=== PATIENT | male | born 1935 | race Caucasian/White ===

== ENCOUNTER 2016-11-07 19:21 | Inpatient (IN) ==
[2016-11-07] MEDS ORDERED: SODIUM CHLORIDE 1,000 ML IV STA ×3 (19:24→21:15)
[2016-11-07] MEDS ORDERED: ZOFRAN 4 MG/2 ML IVP STA (19:24)
[2016-11-07] MEDS ORDERED: MORPHINE 2 MG/ML SYRINGE IVP STA (19:25)
[2016-11-07 19:40] LABS: BASOPHILS # (AUTO) 0.1 K/uL (0-0.2); BASOPHILS % (AUTO) 0.3 % (0.0-3.0); EOSINOPHILS # (AUTO) 0.8 K/ul (0.0-0.7); EOSINOPHILS % (AUTO) 5.4 % (0.0-7.0); HEMATOCRIT 43.3 % (42.0-52.0); HEMOGLOBIN 14.8 g/dl (14.0-18.0); IMMATURE GRANULOCYTE % (AUTO) 0.5 % (0.0-5.0); LYMPHOCYTES # (AUTO) 1.3 K/uL (0.60-3.4); LYMPHOCYTES % (AUTO) 8.3 (10.0-50.0); MEAN CORPUSCULAR HGB CONC 34.2 (31.8-35.4); MEAN CORPUSCULAR VOLUME 84.9 fl (80.0-94.0); MONOCYTES # (AUTO) 1.1 K/uL (0.4-2.0); MONOCYTES % (AUTO) 7.2 (0-10); NEUTROPHILS % (AUTO) 78.3; PLATELET COUNT 259 10^3/uL (140-440); WHITE BLOOD COUNT 15.32 K/ul (4.2-10.2)
[2016-11-07 20:01] LABS: ANION GAP 19.3; BILIRUBIN,TOTAL 0.38 mg/dL (0.00-1.20); BUN/CREATININE RATIO 14.28; CALCIUM 9.9 mg/dL (8.2-10.2); CREATININE 1.4 mg/dL (0.60-1.10); POTASSIUM 4.3 mmol/L (3.5-5.1)
[2016-11-07 20:06] LABS: TROPONIN I 0.032 ng/ml (0.0000-0.4000)
[2016-11-07 20:16] LABS: ERYTHROCYTE SEDIMENTATION RATE 35 mm/hr (0-15); ESR INTERNAL QC INTERNAL QC VALID
[2016-11-07 20:22] LABS: FLU INTERNAL QC INTERNAL QC VALID; RAPID FLU A NEGATIVE (NEGATIVE); RAPID FLU B NEGATIVE (NEGATIVE)
--- NOTE | 2016-11-07 20:59 | CT ---
Exam: CT of the abdomen and pelvis without contrast History: Vomiting and diarrhea Technique: [address] of the abdomen pelvis without intravascular contrast FINDINGS: Reticular coarsening in the lung bases right greater than left. No infiltrative opacitie s. No abnormality of the liver, pancreas, spleen or adrenal glands. Prior cholecystectomy. Athero sclerotic calcification of the aorta without aneurysm. Inferior vena cava filter in place. The radha endix is normal. Fluid filled, nondilated small bowel and colonic loops. No inflammation of the me sentery or retroperitoneum. Peritoneal lipomatosis is present. Generous prostate gland. Normal urinary bladder. Pelvic bowel loops appear normal with luminal flu id. No acute findings of the skeleton. Minor stranding of the subcutaneous fat noted symmetrically right and left of the umbilicus. Impression: 1. No inflammatory process, bowel or urinary obstruction is seen. 2. Nonspecific fluid filled small bowel and colonic loops with nonobstructive pattern. Correlate f or diarrhea. 3. Inferior vena cava filter in place 4. Subcutaneous fat stranding of the abdominal wall anteriorly and symmetrically right and left of the umbilicus. Correlate with clinical inspection.
--- NOTE | 2016-11-07 22:43 | ED.PDOC ---
General ED Provider: Dr. SANTHOSH LOPEZ-ER Chief Complaint: Nausea/Vomiting Stated Complaint: hes had vomiting and diarrhea Time Seen by Physician: 19:55 Mode of Arrival: Wheelchair Information Source: Patient, Family Exam Limitations: No limitations Primary Care Provider: SANTHOSH LOPEZ Nursing and Triage Documentation Reviewed and Agree: Yes GI Complaint Exam - Vomiting/Diarrhea Complaint/Exam Onset/Duration: 24hrs Symptoms Are: Still present Episodes of Vomiting over last 24 Hours: 5 Episodes of Diarrhea Over Last 24 Hours: 9 Initial Severity: Mild Current Severity: None Character of Vomiting: Reports: Non-bilious Character of Diarrhea: Reports: Watery Aggravating: Reports: None Alleviating: Reports: None Associated Signs and Symptoms: Reports: Abdominal pain, Cramping Related History: Reports: Recent antibiotics Non-GI Risk Factors: Reports: None Abdominal Findings: Present: None Kussmaul Respirations Present: No Differential Diagnoses: Dehydration, Viral Gastroenteritis, Bacterial Gastroenteritis, UTI Review of Systems - Review Of Systems Constitutional: Reports: Chills, Fever, Weakness Eyes: Reports: No symptoms Ears, Nose, Mouth, Throat: Reports: No symptoms Respiratory: Reports: No symptoms Cardiac: Reports: No symptoms GI: Reports: Abdominal pain, Diarrhea, Nausea, Poor appetite, Vomiting : Reports: No symptoms Musculoskeletal: Reports: No symptoms Skin: Reports: No symptoms Neurological: Reports: No symptoms Endocrine: Reports: No symptoms Hematologic/Lymphatic: Reports: No symptoms All Other Systems: Reviewed and Negative Past Medical History - Past Medical History Endocrine: Reports: Unknown Cardiovascular: Reports: Unknown Respiratory: Reports: Unknown Hematological: Reports: Unknown Gastrointestinal: Reports: Unknown Genitourinary: Reports: Unknown Neuro/Psych: Reports: Unknown Musculoskeletal: Reports: Unknown Cancer: Reports: Unknown - Surgical History General Surgical History: Reports: Unknown - Family History Family History: Reports: Unknown - Social History Smoking Status: Former smoker Hx Substance Use: No Alcohol Screening: None Lives: With family - Immunizations Tetanus Shot up to Date: Yes Physical Exam - Physical Exam Appearance: Ill-appearing Ill-appearing: Moderate Pain Distress: Mild Eyes: GERMAN, EOMI, Conjunctiva clear ENT: Ears normal, Nose normal, Oropharynx normal Neck: Supple Respiratory: Airway patent, Breath sounds clear, Breath sounds equal, Respirations nonlabored Cardiovascular: RRR, Pulses normal, No rub, No murmur GI/: Soft, Nontender, No masses, Bowel sounds normal, No Organomegaly Musculoskeletal: Normal strength, ROM intact, No edema, No calf tenderness Skin: Warm, Dry, Normal color Neurological: Sensation intact, Motor intact, Reflexes intact, Cranial nerves intact, Alert, Oriented Psychiatric: Affect appropriate, Mood appropriate Interpretation - Radiology Interpretation Radiology Interpretation By: Radiologist Radiology Results: Negative Exam Interpreted: CT Scan - EKG Interpretation Time of EKG #1: 22:44 Rate: Tachy Rhythm: Sinus Ectopy: None Bazine: NL ST Segment: Normal Interpretation: sinus tachy Re-Evaluation - Re-Evaluation Time of Re-Evaluation: 22:44 Status: Improved Vital Signs Stable: Yes Pain Level: 0 Appearance: NAD Lungs: Clear Skin: Warm and Dry Neuro: Alert and Oriented X3 CV: RRR Critical Care Note - Critical Care Note Total Time (mins): 0 Course - Course Hematology/Chemistry: 11/07/16 19:34 11/07/16 19:35 Orders, Labs, Meds: Lab Review 11/07/16 11/07/16 11/07/16 19:34 19:35 19:55 WBC 15.32 H RBC 5.10 Hgb 14.8 Hct 43.3 MCV 84.9 MCH 29.0 MCHC 34.2 RDW Coeff of Shahnaz 14.1 Plt Count 259 Immature Gran % (Auto) 0.5 Neut % (Auto) 78.3 Lymph % (Auto) 8.3 L [place] % (Auto) 7.2 Eos % (Auto) 5.4 Baso % (Auto) 0.3 Immature Gran # (Auto) 0.1 Neut # 12.0 H Lymph # 1.3 [place] # 1.1 Eos # 0.8 H Baso # 0.1 ESR 35 H Sodium 136 Potassium 4.3 Chloride 103 Carbon Dioxide 18 L Anion Gap 19.3 BUN 20 H Creatinine 1.40 H Estimated GFR (MDRD) 49.00 BUN/Creatinine Ratio 14.28 Glucose 222 H Calcium 9.9 Total Bilirubin 0.38 AST 22 ALT 25 Alkaline Phosphatase 60 Total Creatine Kinase 104 Troponin I 0.0320 Total Protein 8.0 Albumin 4.0 Globulin 4.0 Albumin/Globulin Ratio 1.00 Amylase 43 Lipase 23 Influenza A (Rapid) Negative Influenza B (Rapid) Negative Orders Category Date Time Status EKG-(ED ONLY) Stat CARDIO 11/07/16 19:23 Completed C-DIFF MONITORING (NURSING) BID CARE 11/07/16 19:57 Active IV [ED IV/MEDIPORT/POWERPORT] .ONCE EMERGENCY 11/07/16 19:23 Active AMYLASE Stat LAB 11/07/16 19:35 Completed CBC W/ AUTO DIFF Stat LAB 11/07/16 19:34 Completed COMPREHENSIVE METABOLIC PANEL Stat LAB 11/07/16 19:35 Completed CREATINE KINASE Stat LAB 11/07/16 19:34 Completed ESR Stat LAB 11/07/16 19:34 Completed LIPASE Stat LAB 11/07/16 19:35 Completed MOLECULAR GROUP A STREP Stat LAB 11/07/16 19:57 Results RAPID FLU A/B Stat LAB 11/07/16 19:55 Completed STOOL CULTURE Stat LAB 11/07/16 21:00 Results STREP SCREEN Stat LAB 11/07/16 19:57 Results TROPONIN I Stat LAB 11/07/16 19:34 Completed URINALYSIS C & S IF INDICATED Stat LAB 11/07/16 19:58 Ordered cdiff [C. DIFFICILE] Routine LAB 11/07/16 21:00 Received 0.9 % Sodium Chloride [Saline Flush] MEDS 11/07/16 19:23 Ordered 1 syr IVF PRN PRN Levofloxacin/D5w [Levaquin] 250 mg MEDS 11/07/16 22:48 Active Premix 50 ml D5w 1 bag IV ONCE Morphine Sulfate [Morphine 2 mg/ml Syringe] MEDS 11/07/16 19:25 Discontinued 2 mg IVP ONCE STA Ondansetron HCl/Pf [Zofran 4 mg/2 ml] MEDS 11/07/16 19:24 Discontinued 8 mg IVP ONCE STA Sodium Chloride 0.9% [Sodium Chloride] 1,000 ml MEDS 11/07/16 21:15 Active IV 150 mls/hr Sodium Chloride 0.9% [Sodium Chloride] 1,000 ml MEDS 11/07/16 19:24 Discontinued IV BOLUS Sodium Chloride 0.9% [Sodium Chloride] 1,000 ml MEDS 11/07/16 19:[address] ABDOMEN/PELVIS WO CONTRAST Stat RADS 11/07/16 19:25 Completed Medications Generic Name Dose Route Start Last Admin Trade Name Freq PRN Reason Stop Dose Admin Sodium Chloride 1,000 mls @ 150 mls/hr 11/07/16 21:15 11/07/16 22:14 Sodium Chloride IV 11/08/16 03:54 150 mls/hr .Q6H40M STA Administration Levofloxacin/Dextrose 250 mg/ 50 mls @ 75 mls/hr 11/07/16 22:48 Dextrose IV 11/07/16 23:27 ONCE STA Sodium Chloride 1 syr 11/07/16 19:23 11/07/16 20:08 Saline Flush IVF 1 syr PRN PRN Administration To flush IV Discontinued Medications Generic Name Dose Route Start Last Admin Trade Name Freq PRN Reason Stop Dose Admin Sodium Chloride 1,000 mls @ 1,000 mls/hr 11/07/16 19:24 11/07/16 21:05 Sodium Chloride IV 11/07/16 20:23 1,000 mls/hr BOLUS STA Administration Sodium Chloride 1,000 mls @ 1,000 mls/hr 11/07/16 19:24 11/07/16 20:04 Sodium Chloride IV 11/07/16 20:23 1,000 mls/hr BOLUS STA Administration Morphine Sulfate 2 mg 11/07/16 19:25 11/07/16 20:10 Morphine 2 Mg/Ml Syringe IVP 11/07/16 19:26 2 mg ONCE STA Administration Ondansetron HCl 8 mg 11/07/16 19:24 11/07/16 20:08 Zofran 4 Mg/2 Ml IVP 11/07/16 19:25 8 mg ONCE STA Administration Vital Signs: Temp Pulse Resp BP Pulse Ox 11/07/16 19:53 98.8 F 118 H 22 139/83 99 Departure - Departure Time of Disposition: 22:52 Disposition: ADMITTED INPATIENT Discharge Problem: Enteritis due to Campylobacter species Instructions: Infectious Colitis (ED) Condition: Good Pt referred to PMD for follow-up: Yes Allergies/Adverse Reactions: Allergies codeine Adverse Reaction (Verified 11/07/16 20:15) sulfamethoxazole [From Bactrim] Adverse Reaction (Verified 11/07/16 20:15) trimethoprim [From Bactrim] Adverse Reaction (Verified 11/07/16 20:15) Home Medications: Ambulatory Orders Allopurinol 300 mg PO DAILY 03/03/14 Amlodipine Besylate [Norvasc] 10 mg PO DAILY 03/03/14 Aspirin [Aspirin EC] 81 mg PO DAILY 03/03/14 Cholecalciferol (Vitamin D3) [D3-2000] 2,000 units PO DAILY 03/03/14 Hydrocodone/Acetaminophen [[place] 5-325 Tablet] 1 tab PO Q4H PRN 03/03/14 Ipratropium/Albuterol Sulfate [Combivent Respimat Inhal [place]] 3 mg IH DAILY PRN 03/03/14 Losartan Potassium 100 mg PO DAILY 03/03/14 Minocycline HCl 50 mg PO DAILY PRN 03/03/14 Montelukast Sodium [Singulair] 10 mg PO DAILY 03/03/14 [place]-3 Fatty Acids [Fish Oil] 1,400 mg PO DAILY 03/03/14 Propafenone HCl [Rythmol] 150 mg PO BID 03/03/14 Ubidecarenone [Co Q-10] 200 mg PO DAILY 03/03/14 Insulin Regular, Human [Novolin R] 5 unit IJ TIDWM 11/07/16 NPH, Human Insulin Isophane [Novolin N Insulin] 40 unit SUBCUT BID 11/07/16 Disposition Discussed With: Patient, Family
[2016-11-07] MEDS ORDERED: LEVAQUIN 250 MG in PREMIX 50 ML D5W 1 BAG IV STA (22:48)
[2016-11-07] MEDS ORDERED: LEVAQUIN 50 ML IV ONE (22:50)
[2016-11-07] MEDS ORDERED: NORCO 5-325 PO PRN (22:55)
[2016-11-07] MEDS ORDERED: COMBIVENT RESPIMAT INHAL SPRAY IH PRN (22:55)
[2016-11-07] MEDS ORDERED: ZOFRAN 4 MG/2 ML IVP PRN (23:36)
[2016-11-07] MEDS ORDERED: MORPHINE 2 MG/ML SYRINGE IVP PRN (23:36)
[2016-11-08 00:19] VITALS: BMI 33.5
[2016-11-08] MEDS ORDERED: FLAGYL 500 MG/100 ML 100 ML IV ONE ×2 (00:32→04:43)
[2016-11-08] MEDS: FLAGYL 500 MG/100 ML 500 MG in PREMIX 100 ML NS 1 BAG IV SCH ×4 (00:39→20:38)
[2016-11-08 01:19] LABS: BILIRUBIN,URINE Negative (NEGATIVE); KETONES,URINE Trace (NEGATIVE); LEUKOCYTE ESTERASE ,URINE Negative (NEGATIVE); NITRITE,URINE Negative (NEGATIVE); PH,URINE 5.5 (5-9); PROTEIN,URINE Negative (NEGATIVE); URINE, BLOOD Negative (NEGATIVE)
[2016-11-08 01:20] LABS: ADD URINE MICROSCOPIC NO
[2016-11-08 05:44] LABS: BASOPHILS % (AUTO) 0.4 % (0.0-3.0); EOSINOPHILS # (AUTO) 0.6 K/ul (0.0-0.7); EOSINOPHILS % (AUTO) 6.9 % (0.0-7.0); HEMATOCRIT 34.4 % (42.0-52.0); HEMOGLOBIN 11.4 g/dl (14.0-18.0); IMMATURE GRANULOCYTE % (AUTO) 0.4 % (0.0-5.0); LYMPHOCYTES # (AUTO) 2.3 K/uL (0.60-3.4); LYMPHOCYTES % (AUTO) 24.5 (10.0-50.0); MEAN CORPUSCULAR HEMOGLOBIN 28.7 pg (27.0-31.0); MEAN CORPUSCULAR HGB CONC 33.1 (31.8-35.4); MEAN CORPUSCULAR VOLUME 86.6 fl (80.0-94.0); MONOCYTES # (AUTO) 0.8 K/uL (0.4-2.0); MONOCYTES % (AUTO) 8.1 (0-10); NEUTROPHILS # (AUTO) 5.6 K/ul (2.0-6.9); NEUTROPHILS % (AUTO) 59.7; PLATELET COUNT 212 10^3/uL (140-440); RED BLOOD COUNT 3.97 10^6/ul (4.70-6.10); WHITE BLOOD COUNT 9.34 K/ul (4.2-10.2)
[2016-11-08] MEDS: SODIUM CHLORIDE 0.9%-KCL 20 MEQ 1,000 ML IV SCH ×3 (05:55→18:21)
[2016-11-08 05:59] LABS: ALBUMIN 3.1 g/dL (3.4-5.0); ALBUMIN/GLOBULIN RATIO 0.94; ANION GAP 12.9; BILIRUBIN,TOTAL 0.36 mg/dL (0.00-1.20); BUN/CREATININE RATIO 17.11; CALCIUM 8.1 mg/dL (8.2-10.2); CREATININE 1.11 mg/dL (0.60-1.10); POTASSIUM 3.9 mmol/L (3.5-5.1); TOTAL PROTEIN 6.4 g/dL (5.8-8.1)
[2016-11-08] MEDS: HUMULIN N SUBCUT SCH ×2 (08:56→20:39)
[2016-11-08] MEDS: HUMULIN R SUBCUT SCH ×3 (08:57→17:13)
[2016-11-08] MEDS: ZYLOPRIM PO SCH (08:57)
[2016-11-08] MEDS ORDERED: PROPAFENONE HCL 150 MG PO SCH ×21 (09:00)
[2016-11-08] MEDS ORDERED: NON-FORMULARY MEDICATION (Allopurinol [Allopurinol] 300 MG) PO SCH ×22 (09:00)
[2016-11-08] MEDS: PROPAFENONE HCL 150 MG PO SCH ×21 (20:38)
[2016-11-08] MEDS ORDERED: LEVAQUIN 500 MG in PREMIX 100 ML D5W 1 BAG IV SCH (21:00)
[2016-11-09] MEDS: SODIUM CHLORIDE 0.9%-KCL 20 MEQ 1,000 ML IV SCH (01:05)
[2016-11-09] MEDS: FLAGYL 500 MG/100 ML 500 MG in PREMIX 100 ML NS 1 BAG IV SCH (05:37)
[2016-11-09 05:47] VITALS: BP 118/71; TEMP 97.3
[2016-11-09 06:10] LABS: BASOPHILS % (AUTO) 0.4 % (0.0-3.0); EOSINOPHILS % (AUTO) 13.5 % (0.0-7.0); HEMOGLOBIN 11.8 g/dl (14.0-18.0); IMMATURE GRANULOCYTE % (AUTO) 0.4 % (0.0-5.0); LYMPHOCYTES # (AUTO) 1.8 K/uL (0.60-3.4); LYMPHOCYTES % (AUTO) 24.6 (10.0-50.0); MEAN CORPUSCULAR HEMOGLOBIN 29.1 pg (27.0-31.0); MEAN CORPUSCULAR HGB CONC 33.7 (31.8-35.4); MEAN CORPUSCULAR VOLUME 86.4 fl (80.0-94.0); MONOCYTES # (AUTO) 0.5 K/uL (0.4-2.0); MONOCYTES % (AUTO) 6.8 (0-10); NEUTROPHILS # (AUTO) 3.9 K/ul (2.0-6.9); NEUTROPHILS % (AUTO) 54.3; PLATELET COUNT 232 10^3/uL (140-440); RED BLOOD COUNT 4.05 10^6/ul (4.70-6.10); WHITE BLOOD COUNT 7.16 K/ul (4.2-10.2)
[2016-11-09] MEDS ORDERED: LEVAQUIN PO SCH (06:30)
[2016-11-09 06:40] LABS: ANION GAP 10.1; BILIRUBIN,TOTAL 0.34 mg/dL (0.00-1.20); BUN/CREATININE RATIO 12.5; CALCIUM 8.7 mg/dL (8.2-10.2); CREATININE 0.96 mg/dL (0.60-1.10); POTASSIUM 4.1 mmol/L (3.5-5.1)
[2016-11-09 06:41] LABS: ALBUMIN 3.3 g/dL (3.4-5.0); TOTAL PROTEIN 6.6 g/dL (5.8-8.1)
[2016-11-09] MEDS: HUMULIN R SUBCUT SCH (08:27)
[2016-11-09] MEDS: HUMULIN N SUBCUT SCH (08:28)
[2016-11-09] MEDS: ZYLOPRIM PO SCH (08:29)
[2016-11-09] MEDS: PROPAFENONE HCL 150 MG PO SCH ×21 (08:29)
--- NOTE | 2017-02-06 09:30 | DS ---
PRINCIPAL DIAGNOSIS: 1. INFECTIOUS COLITIS 2. HYPERTENSION 3. COPD 4. DIABETES MELLITUS, INSULIN TREATED DISCUSSION: This is a 81-year-old gentleman, who was admitted through the Emergency Department with diarrhea with occasional blood, nausea and vomiting. He appeared somewhat dehydrated in the Emergency Department and was admitted for further evaluation. CLINICAL COURSE: The patient was admitted. Subsequent stool cultures were noted to be positive for Campylobacter antigen. He did well with antibiotics. His diarrhea abated. His nausea and vomiting resolved. We advanced his diet. At time of discharge, he was feeling much better. At this point he was discharged with medications per reconciliation. We are going to follow him up closely in the office. [place]
== END 2016-11-09 09:52 | disposition home or self-care (01) | DRG 373 ==
LOC: ED 19:21 → MEDSURG B 23:06
PROVIDERS: ADMIT Family Medicine; ATTEND Family Medicine
DX: A04.5 Campylobacter enteritis (principal); I10 Essential (primary) hypertension; J44.9 Chronic obstructive pulmonary disease, unspecified; E11.9 Type 2 diabetes mellitus without complications; Z79.4 Long term (current) use of insulin; Z79.899 Other long term (current) drug therapy
CPT/HCPCS: 36415; 80053; 81001; 82150; 82550; 82962; 83690; 84484; 85025; 85651; 87015; 87045; 87493; 87651; 87804; 87880; 87899; 93005; 93010; 96361; 96365; 96375; 97802; 99284

== ENCOUNTER 2016-11-18 22:04 | Emergency (ER) ==
[2016-11-18] MEDS ORDERED: SODIUM CHLORIDE 1,000 ML IV STA ×3 (22:14→23:23)
[2016-11-18 22:18] VITALS: BP 135/80; TEMP 98.2; BMI 32.3
[2016-11-18 22:39] LABS: BASOPHILS # (AUTO) 0.1 K/uL (0-0.2); BASOPHILS % (AUTO) 0.3 % (0.0-3.0); EOSINOPHILS % (AUTO) 4.8 % (0.0-7.0); HEMATOCRIT 46.3 % (42.0-52.0); HEMOGLOBIN 15.8 g/dl (14.0-18.0); IMMATURE GRANULOCYTE % (AUTO) 0.4 % (0.0-5.0); LYMPHOCYTES # (AUTO) 2.6 K/uL (0.60-3.4); LYMPHOCYTES % (AUTO) 12.7 (10.0-50.0); MEAN CORPUSCULAR HEMOGLOBIN 29.1 pg (27.0-31.0); MEAN CORPUSCULAR HGB CONC 34.1 (31.8-35.4); MEAN CORPUSCULAR VOLUME 85.3 fl (80.0-94.0); MONOCYTES # (AUTO) 1.2 K/uL (0.4-2.0); MONOCYTES % (AUTO) 5.8 (0-10); NEUTROPHILS # (AUTO) 15.7 K/ul (2.0-6.9); PLATELET COUNT 302 10^3/uL (140-440); RED BLOOD COUNT 5.43 10^6/ul (4.70-6.10); WHITE BLOOD COUNT 20.57 K/ul (4.2-10.2)
[2016-11-18] MEDS ORDERED: LIDOCAINE 1 % AMP 5 ML (SUTURES) ONE (22:50)
[2016-11-18 22:55] LABS: FLU INTERNAL QC INTERNAL QC VALID; RAPID FLU A NEGATIVE (NEGATIVE); RAPID FLU B NEGATIVE (NEGATIVE)
[2016-11-18 23:00] LABS: ALBUMIN 4.3 g/dL (3.4-5.0); ALBUMIN/GLOBULIN RATIO 0.98; ANION GAP 20.1; BILIRUBIN,TOTAL 0.46 mg/dL (0.00-1.20); BUN/CREATININE RATIO 12.42; CALCIUM 10.3 mg/dL (8.2-10.2); CREATININE 1.61 mg/dL (0.60-1.10); POTASSIUM 4.1 mmol/L (3.5-5.1); TOTAL PROTEIN 8.7 g/dL (5.8-8.1)
[2016-11-18] MEDS ORDERED: DILAUDID 1 MG/ML SYRINGE IVP STA (23:05)
[2016-11-18] MEDS ORDERED: ZOFRAN 4 MG/2 ML IVP STA (23:05)
[2016-11-18] MEDS ORDERED: FLAGYL 500 MG/100 ML 500 MG in PREMIX 100 ML NS 1 BAG IV STA (23:11)
[2016-11-18] MEDS ORDERED: FLAGYL 500 MG/100 ML 100 ML IV ONE (23:26)
--- NOTE | 2016-11-19 00:03 | CT ---
Exam: CT of the abdomen and pelvis without contrast History: Vomiting and diarrhea Technique: [address] of the abdomen and pelvis without intravascular contrast FINDINGS: Fibrotic coarsening of the lung bases. No significant liver abnormality. The adrenals, pa ncreas and spleen are unremarkable. The stomach and hiatus are unremarkable.Prior cholecystectomy. K idneys and proximal collecting system are unremarkable. The appendix is normal. The cecum is mobile located just left of midline. Atherosclerotic calcification of the aorta without aneurysm. Inferi or vena cava filter in place. Pelvic genitourinary structures appear normal. Pelvic bowel loops are unremarkable. No inflammatory change in the pelvic fat. No acute abnormality of the abdominal or pelvic skeleton. Impression: 1. No inflammatory process, bowel or urinary obstruction is seen. No acute findings of the abdomen or pelvis. 2. Atherosclerotic calcification of the aorta 3. Inferior vena cava filter in place
--- NOTE | 2016-11-19 01:21 | ED.PDOC ---
General ED Provider: Dr. SANTHOSH LOPEZ-ER Chief Complaint: Nausea/Vomiting Stated Complaint: hes vomiting and diarrhea Time Seen by Physician: 22:10 Information Source: Patient, Family Exam Limitations: No limitations Primary Care Provider: SANTHOSH LOPEZ Nursing and Triage Documentation Reviewed and Agree: Yes GI Complaint Exam - Vomiting/Diarrhea Complaint/Exam Onset/Duration: several hours Symptoms Are: Still present Episodes of Vomiting over last 24 Hours: 3 Episodes of Diarrhea Over Last 24 Hours: 3 Initial Severity: Mild Current Severity: Moderate Character of Vomiting: Reports: Non-bilious Character of Diarrhea: Reports: Watery Aggravating: Reports: None Alleviating: Reports: None Associated Signs and Symptoms: Reports: Abdominal pain, Cramping Related History: Reports: Recent antibiotics Non-GI Risk Factors: Reports: None Surgical Obstruction Risk Factors: Reports: None Abdominal Findings: Present: None Kussmaul Respirations Present: No Differential Diagnoses: Dehydration, Viral Gastroenteritis, Bacterial Gastroenteritis Review of Systems - Review Of Systems Constitutional: Reports: No symptoms Eyes: Reports: No symptoms Ears, Nose, Mouth, Throat: Reports: No symptoms Respiratory: Reports: No symptoms Cardiac: Reports: No symptoms GI: Reports: Abdominal pain, Diarrhea, Nausea, Vomiting : Reports: No symptoms Musculoskeletal: Reports: No symptoms Skin: Reports: No symptoms Neurological: Reports: No symptoms Endocrine: Reports: No symptoms Hematologic/Lymphatic: Reports: No symptoms All Other Systems: Reviewed and Negative Past Medical History - Past Medical History Endocrine: Reports: Unknown Cardiovascular: Reports: Unknown Respiratory: Reports: Unknown Hematological: Reports: Unknown Gastrointestinal: Reports: Unknown Genitourinary: Reports: Unknown Neuro/Psych: Reports: Unknown Musculoskeletal: Reports: Unknown Cancer: Reports: Unknown - Surgical History General Surgical History: Reports: Unknown - Family History Family History: Reports: Unknown - Social History Smoking Status: Never smoker Hx Substance Use: No Alcohol Screening: None Lives: With family - Immunizations Tetanus Shot up to Date: Yes Physical Exam - Physical Exam Appearance: Well-appearing, No pain distress, Well-nourished Eyes: GERMAN, EOMI, Conjunctiva clear ENT: Ears normal, Nose normal, Oropharynx normal Neck: Supple Respiratory: Airway patent, Breath sounds clear, Breath sounds equal, Respirations nonlabored Cardiovascular: RRR, Pulses normal, No rub, No murmur GI/: Soft, Nontender, No masses, Bowel sounds normal, No Organomegaly Musculoskeletal: Normal strength, ROM intact, No edema, No calf tenderness Skin: Warm, Dry, Normal color Neurological: Sensation intact, Motor intact, Reflexes intact, Cranial nerves intact, Alert, Oriented Psychiatric: Affect appropriate, Mood appropriate Interpretation - Radiology Interpretation Radiology Interpretation By: Radiologist Radiology Results: Negative Exam Interpreted: CT Scan Re-Evaluation - Re-Evaluation Time of Re-Evaluation: 01:20 Status: Improved (no pain or nausea--eating ice chips) Vital Signs Stable: Yes Pain Level: 0 Lungs: Clear Skin: Warm and Dry Neuro: Alert and Oriented X3 CV: RRR Critical Care Note - Critical Care Note Total Time (mins): 0 Course - Course Hematology/Chemistry: 11/18/16 22:30 11/18/16 22:30 Orders, Labs, Meds: Lab Review 11/18/16 11/18/16 11/18/16 22:20 22:30 23:35 WBC 20.57 H RBC 5.43 Hgb 15.8 Hct 46.3 MCV 85.3 MCH 29.1 MCHC 34.1 RDW Coeff of Shahnaz 14.4 Plt Count 302 Immature Gran % (Auto) 0.4 Neut % (Auto) 76.0 Lymph % (Auto) 12.7 [place] % (Auto) 5.8 Eos % (Auto) 4.8 Baso % (Auto) 0.3 Immature Gran # (Auto) 0.1 Neut # 15.7 H Lymph # 2.6 [place] # 1.2 Eos # 1.0 H Baso # 0.1 Sodium 138 Potassium 4.1 Chloride 103 Carbon Dioxide 19 L Anion Gap 20.1 BUN 20 H Creatinine 1.61 H Estimated GFR (MDRD) 42.00 BUN/Creatinine Ratio 12.42 Glucose 221 H Lactic Acid 25.6 H Calcium 10.3 H Total Bilirubin 0.46 AST 21 ALT 22 Alkaline Phosphatase 55 L Total Protein 8.7 H Albumin 4.3 Globulin 4.4 Albumin/Globulin Ratio 0.98 Amylase 52 Lipase 23 Procalcitonin 0.05 Influenza A (Rapid) Negative Influenza B (Rapid) Negative Orders Category Date Time Status C-DIFF MONITORING (NURSING) BID CARE 11/18/16 22:15 Active IV [ED IV/MEDIPORT/POWERPORT] .ONCE EMERGENCY 11/18/16 22:14 Active AMYLASE Stat LAB 11/18/16 22:30 Completed BLOOD CULTURE Stat LAB 11/18/16 22:30 Received CBC W/ AUTO DIFF Stat LAB 11/18/16 22:30 Completed COMPREHENSIVE METABOLIC PANEL Stat LAB 11/18/16 22:30 Completed LACTIC ACID Stat LAB 11/18/16 23:35 Completed LIPASE Stat LAB 11/18/16 22:30 Completed MOLECULAR GROUP A STREP Stat LAB 11/18/16 20:20 Results PROCALCITONIN Stat LAB 11/18/16 22:30 Completed RAPID FLU A/B Stat LAB 11/18/16 22:20 Completed STOOL CULTURE Stat LAB 11/18/16 22:20 Results STREP SCREEN Stat LAB 11/18/16 20:20 Results c-diff [C. DIFFICILE] Routine LAB 11/18/16 22:20 Received 0.9 % Sodium Chloride [Saline Flush] MEDS 11/18/16 22:14 Ordered 1 syr IVF PRN PRN Hydromorphone HCl [Dilaudid 1 mg/ml Syringe] MEDS 11/18/16 23:05 Discontinued 1 mg IVP ONCE STA Lidocaine HCl/Pf [Lidocaine 1 % Amp 5 ml (Sutures)] MEDS 11/18/16 22:50 Discontinued 5 ml .ROUTE .STK-MED ONE Metronidazole/Sodium Chloride [Flagyl 500 mg/100 ml] MEDS 11/18/16 23:26 Discontinued 100 ml IV .STK-MED Metronidazole/Sodium Chloride [Flagyl 500 mg/100 ml] MEDS 11/18/16 23:11 Discontinued 500 mg Premix 100 ml Ns 1 bag IV ONCE Ondansetron HCl/Pf [Zofran 4 mg/2 ml] MEDS 11/18/16 23:05 Discontinued 4 mg IVP ONCE STA Sodium Chloride 0.9% [Sodium Chloride] 1,000 ml MEDS 11/18/16 23:23 Active IV 100 mls/hr Sodium Chloride 0.9% [Sodium Chloride] 1,000 ml MEDS 11/18/16 22:14 Discontinued IV BOLUS Sodium Chloride 0.9% [Sodium Chloride] 1,000 ml MEDS 11/18/16 22:[address] ABDOMEN/PELVIS WO CONTRAST Stat RADS 11/18/16 22:14 Completed Medications Generic Name Dose Route Start Last Admin Trade Name Freq PRN Reason Stop Dose Admin Sodium Chloride 1,000 mls @ 100 mls/hr 11/18/16 23:23 Sodium Chloride IV 11/19/16 09:22 .Q10H STA Sodium Chloride 1 syr 11/18/16 22:14 11/18/16 23:08 Saline Flush IVF 1 syr PRN PRN Administration To flush IV Discontinued Medications Generic Name Dose Route Start Last Admin Trade Name Freq PRN Reason Stop Dose Admin Hydromorphone HCl 1 mg 11/18/16 23:05 11/18/16 23:14 Dilaudid 1 Mg/Ml Syringe IVP 11/18/16 23:06 1 mg ONCE STA Administration Sodium Chloride 1,000 mls @ 1,000 mls/hr 11/18/16 22:14 11/18/16 23:08 Sodium Chloride IV 11/18/16 23:13 1,000 mls/hr BOLUS STA Administration Sodium Chloride 1,000 mls @ 1,000 mls/hr 11/18/16 22:14 11/19/16 01:10 Sodium Chloride IV 11/18/16 23:13 1,000 mls/hr BOLUS STA Administration Metronidazole 500 mg/ Sodium 100 mls @ 100 mls/hr 11/18/16 23:11 11/18/16 23: 50 Chloride IV 11/19/16 00:10 100 mls/hr ONCE STA Administration Ondansetron HCl 4 mg 11/18/16 23:05 11/18/16 23:13 Zofran 4 Mg/2 Ml IVP 11/18/16 23:06 4 mg ONCE STA Administration Vital Signs: Temp Pulse Resp BP Pulse Ox 11/18/16 22:05 98.2 F 126 H 24 135/80 99 Departure - Departure Time of Disposition: 01:21 Disposition: TSF SHORT-TRM HOSP Discharge Problem: Enteritis due to Campylobacter species Instructions: Enteritis (ED) Condition: Good Pt referred to PMD for follow-up: Yes Allergies/Adverse Reactions: Allergies codeine Adverse Reaction (Verified 11/18/16 22:10) sulfamethoxazole [From Bactrim] Adverse Reaction (Verified 11/18/16 22:10) trimethoprim [From Bactrim] Adverse Reaction (Verified 11/18/16 22:10) Home Medications: Ambulatory Orders Allopurinol 300 mg PO DAILY 03/03/14 Amlodipine Besylate [Norvasc] 10 mg PO DAILY 03/03/14 Aspirin [Aspirin EC] 81 mg PO DAILY 03/03/14 Cholecalciferol (Vitamin D3) [D3-2000] 2,000 units PO DAILY 03/03/14 Hydrocodone/Acetaminophen [[place] 5-325 Tablet] 1 tab PO Q4H PRN 03/03/14 Ipratropium/Albuterol Sulfate [Combivent Respimat Inhal [place]] 3 puff IH DAILY PRN 03/03/14 Losartan Potassium 100 mg PO DAILY 03/03/14 Montelukast Sodium [Singulair] 10 mg PO DAILY 03/03/14 [place]-3 Fatty Acids [Fish Oil] 1,000 mg PO DAILY 03/03/14 Propafenone HCl [Rythmol] 150 mg PO BID 03/03/14 Ubidecarenone [Co Q-10] 200 mg PO DAILY 03/03/14 Insulin Regular, Human [Novolin R] 5 unit IJ TIDWM 11/07/16 NPH, Human Insulin Isophane [Novolin N Insulin] 40 unit SUBCUT BID 11/07/16 Transfer Form Completed: Yes Disposition Discussed With: Patient, Family
== END 2016-11-19 01:47 | disposition short-term general hospital (02) ==
LOC: ED 22:04
DX: A04.5 Campylobacter enteritis (principal); Z79.899 Other long term (current) drug therapy
CPT/HCPCS: 36415; 80053; 82150; 83605; 83690; 84145; 85025; 87015; 87040; 87045; 87493; 87651; 87804; 87880; 87899; 96361; 96365; 96375; 99285

== ENCOUNTER 2016-11-19 01:49 | Outpatient (CLI) ==
[2016-11-18 22:18] VITALS: BMI 32.3
== END 2016-11-19 01:50 ==
LOC: AMBL 01:49
PROVIDERS: ATTEND Family Medicine
DX: R11.2 Nausea with vomiting, unspecified (principal); R19.7 Diarrhea, unspecified

== ENCOUNTER 2017-04-24 16:02 | Emergency (ER) ==
[2017-04-24 16:08] VITALS: BP 109/70; TEMP 98.1; BMI 30.4
--- NOTE | 2017-04-24 16:59 | US ---
EXAM: Bilateral lower extremity venous Doppler HISTORY: Concern for DVT with lower extremity pain. COMPARISON: None TECHNIQUE: Sonographic and Doppler evaluation of the bilateral lower extremity vessels from the comm on femoral through the anterior tibial veins were obtained. Augmentation and compression techniques were also performed. FINDINGS: There is spontaneous Doppler flow seen in the bilateral lower extremity veins from the com mon femoral through the anterior tibial veins. There is normal compression and augmentation througho ut the lower extremity veins. Sonographic appearance of the soft tissues are unremarkable. IMPRESSION: No lower extremity thrombus
[2017-04-24 17:11] LABS: BASOPHILS # (AUTO) 0.1 K/uL (0-0.2); BASOPHILS % (AUTO) 0.6 % (0.0-3.0); EOSINOPHILS % (AUTO) 13.1 % (0.0-7.0); HEMOGLOBIN 12.9 g/dl (14.0-18.0); IMMATURE GRANULOCYTE % (AUTO) 0.4 % (0.0-5.0); LYMPHOCYTES # (AUTO) 1.8 K/uL (0.60-3.4); LYMPHOCYTES % (AUTO) 22.7 (10.0-50.0); MEAN CORPUSCULAR HGB CONC 34.9 (31.8-35.4); MONOCYTES # (AUTO) 0.6 K/uL (0.4-2.0); MONOCYTES % (AUTO) 7.2 (0-10); NEUTROPHILS # (AUTO) 4.4 K/ul (2.0-6.9); PLATELET COUNT 220 10^3/uL (140-440); WHITE BLOOD COUNT 7.79 K/ul (4.2-10.2)
--- NOTE | 2017-04-24 17:32 | CT ---
EXAM: CT of the lumbar spine without contrast. HISTORY: Pain. PROCEDURE: Contiguous axial CT images of the lumbar spine without contrast with coronal and sagittal reformats. FINDINGS: Comparison made with CT of 11/18/2016. There is 0.4 cm retrolisthesis of L2 on L3. There is a 0.3 cm anterolisthesis of L4 on L5. There is 0.5 cm retrolisthesis of L5 on S1. There is a stab le chronic anterior wedging deformity of the L1 vertebral body. There is severe disc space narrowing at multiple levels of the lumbar spine. There is vacuum disc phenomenon at multiple levels of the l umbar spine. There is a degenerative erosion in the inferior endplate of T12. There are posterior o steophytes at L1-L2, L2-L3, L3-L4 and L5, S1 resulting in multilevel neural foraminal narrowing. The re is severe multilevel facet arthropathy. There is spinal stenosis at L3-L4 and L4-L5 secondary to p osterior osteophytes, ligamentum flavum hypertrophy and facet arthropathy. Impression: Spinal stenosis at L3-L4 and L4-L5 as described. Multilevel anterolisthesis and retrolisthesis as described secondary to facet arthropathy. Multilevel degenerative changes as described. Multilevel neural foraminal narrowing as described. Stable chronic anterior wedging deformity of the L1 vertebral body.
--- NOTE | 2017-04-24 17:43 | ED.PDOC ---
General ED Provider: Dr. DANIELLA RABAGO Chief Complaint: Non-specific Complaint Stated Complaint: BILATERAL LEG NUMNESS Time Seen by Physician: 16:00 (HISTORY OF NEUROPATHY , SEEN WITH MARYCHUY ) Mode of Arrival: Walk-In Information Source: Patient Exam Limitations: No limitations Primary Care Provider: SANTHOSH LOPEZ Nursing and Triage Documentation Reviewed and Agree: Yes Musculoskeletal Complaint Exam - Lower Extremity Complaint/Exam Location of Pain: Reports: Right, Left, Leg (NUMBNESS ) Mechanism of Injury: Reports: No known trauma Onset/Duration: CHRONIC BUT INCREASED NUMBNESS NOTED Symptoms Are: Still present Onset of Pain: Reports: Days Initial Severity: Mild Current Severity: Mild Location: Reports: Discrete Character: Reports: Unable to describe (NUMBNESS) Alleviating: Reports: None Aggravating: Reports: None Able to Bear Weight: Yes Associated Signs and Symptoms: Reports: Numbness. Denies: Swelling, Redness, Bruising, Fever, Weakness, Tingling Related History: Reports: Similar episode DVT Risk Factors: Reports: Prior DVT Septic Arthritis Risk Factors: Reports: Extremes of age Related Surgical History: Reports: None NV Bundle Intact Distal to Injury: No Amanda's Sign Present: No Differential Diagnoses: DVT, Strain, Sprain Review of Systems - Review Of Systems Constitutional: Reports: No symptoms Eyes: Reports: No symptoms Ears, Nose, Mouth, Throat: Reports: No symptoms Respiratory: Reports: No symptoms Cardiac: Reports: No symptoms GI: Reports: No symptoms : Reports: No symptoms Musculoskeletal: Reports: Other (LEG PAIN) Skin: Reports: No symptoms Neurological: Reports: No symptoms Endocrine: Reports: No symptoms Hematologic/Lymphatic: Reports: No symptoms All Other Systems: Reviewed and Negative Past Medical History - Past Medical History Previously Healthy: Yes Endocrine: Reports: Unknown Cardiovascular: Reports: Unknown Respiratory: Reports: Unknown Hematological: Reports: Unknown Gastrointestinal: Reports: Unknown Genitourinary: Reports: Unknown Neuro/Psych: Reports: Unknown Musculoskeletal: Reports: Unknown Cancer: Reports: Unknown - Surgical History General Surgical History: Reports: Unknown - Family History Family History: Reports: Unknown - Social History Smoking Status: Never smoker Hx Substance Use: No Alcohol Screening: None Physical Exam - Physical Exam Appearance: Well-appearing, No pain distress, Well-nourished Eyes: GERMAN, EOMI, Conjunctiva clear ENT: Ears normal, Nose normal, Oropharynx normal Respiratory: Airway patent, Breath sounds clear, Breath sounds equal, Respirations nonlabored Cardiovascular: RRR, Pulses normal, No rub, No murmur GI/: Soft, Nontender, No masses, Bowel sounds normal, No Organomegaly Musculoskeletal: Normal strength, ROM intact, No edema, No calf tenderness Skin: Warm, Dry, Normal color Neurological: Sensation intact, Motor intact, Reflexes intact, Cranial nerves intact, Alert, Oriented Psychiatric: Affect appropriate, Mood appropriate Critical Care Note - Critical Care Note Total Time (mins): 0 Course - Course Hematology/Chemistry: 04/24/17 17:08 Orders, Labs, Meds: Lab Review 04/24/17 17:08 WBC 7.79 RBC 4.30 L Hgb 12.9 L Hct 37.0 L MCV 86.0 MCH 30.0 MCHC 34.9 RDW Coeff of Shahnaz 14.4 Plt Count 220 Immature Gran % (Auto) 0.4 Neut % (Auto) 56.0 Lymph % (Auto) 22.7 [place] % (Auto) 7.2 Eos % (Auto) 13.1 H Baso % (Auto) 0.6 Immature Gran # (Auto) 0.0 Neut # 4.4 Lymph # 1.8 [place] # 0.6 Eos # 1.0 H Baso # 0.1 Orders Category Date Time Status EKG-(ED ONLY) Stat CARDIO 04/24/17 16:30 Completed CBC W/ AUTO DIFF Stat LAB 04/24/17 17:08 Completed COMPREHENSIVE METABOLIC PANEL Stat LAB 04/24/17 17:08 Received CREATINE KINASE Stat LAB 04/24/17 17:08 Received TROPONIN I Stat LAB 04/24/17 17:[address] LUMBAR SPINE W/O CONTRAST Stat RADS 04/24/17 16:14 Completed U/S VENOUS SCAN ERIN LEGS Stat RADS 04/24/17 16:14 Completed Vital Signs: Temp Pulse Resp BP Pulse Ox 04/24/17 16:03 98.1 F 98 H 16 109/70 95 Departure - Departure Time of Disposition: 17:44 Disposition: HOME SELF-CARE Discharge Problem: Numbness in both legs, Neuropathy Instructions: Paresthesia (ED) Condition: Good Pt referred to PMD for follow-up: Yes Additional Instructions: Please call your Family Physician as soon as possible to schedule a follow-up appointment.THIS CONDITION CAN BE DUE TO ARTHRITIS OF YOUR BACK OR NEUROPATHY A NERVE CONDITION ASSOCIATED WITH DIABETES . Allergies/Adverse Reactions: Allergies ciprofloxacin [From Cipro] Adverse Reaction (Verified 04/24/17 16:08) codeine Adverse Reaction (Verified 04/24/17 16:08) sulfamethoxazole [From Bactrim] Adverse Reaction (Verified 04/24/17 16:08) trimethoprim [From Bactrim] Adverse Reaction (Verified 04/24/17 16:08) warfarin [From Coumadin] Adverse Reaction (Verified 04/24/17 16:08) Home Medications: Ambulatory Orders Allopurinol 300 mg PO DAILY 03/03/14 Amlodipine Besylate [Norvasc] 10 mg PO DAILY 03/03/14 Aspirin [Aspirin EC] 81 mg PO DAILY 03/03/14 Cholecalciferol (Vitamin D3) [D3-2000] 2,000 units PO DAILY 03/03/14 Ipratropium/Albuterol Sulfate [Combivent Respimat Inhal [place]] 3 puff IH DAILY PRN 03/03/14 Losartan Potassium 100 mg PO DAILY 03/03/14 Montelukast Sodium [Singulair] 10 mg PO DAILY 03/03/14 [place]-3 Fatty Acids [Fish Oil] 1,000 mg PO DAILY 03/03/14 Propafenone HCl [Rythmol] 150 mg PO BID 03/03/14 Ubidecarenone [Co Q-10] 200 mg PO DAILY 03/03/14 Insulin Regular, Human [Novolin R] 5 unit IJ TIDWM 11/07/16 NPH, Human Insulin Isophane [Novolin N Insulin] 40 unit SUBCUT BID 11/07/16 Albuterol Sulfate 0.083% Neb [Albuterol 0.083% Neb] 1 vial NEB RTQ8H 04/24/17 Fluticasone/Salmeterol [Advair 250-50 Diskus] 1 each IH DAILY 04/24/17
[2017-04-24 17:48] LABS: ALBUMIN 3.5 g/dL (3.4-5.0); ALBUMIN/GLOBULIN RATIO 0.9; ANION GAP 15.1; BILIRUBIN,TOTAL 0.26 mg/dL (0.00-1.20); BUN/CREATININE RATIO 18.18; CALCIUM 9.3 mg/dL (8.2-10.2); CREATININE 1.21 mg/dL (0.60-1.10); POTASSIUM 4.1 mmol/L (3.5-5.1); TOTAL PROTEIN 7.4 g/dL (5.8-8.1); TROPONIN I 0.02 ng/ml (0.0000-0.4000)
[2017-04-24 17:51] LABS: CREATINE KINASE MB 1.1 ng/ml (0.0-3.6)
== END 2017-04-24 18:11 | disposition home or self-care (01) ==
LOC: ED 16:02
DX: G57.93 Unspecified mononeuropathy of bilateral lower limbs (principal); M79.606 Pain in leg, unspecified; Z79.899 Other long term (current) drug therapy; Z86.718 Personal history of other venous thrombosis and embolism
CPT/HCPCS: 36415; 80053; 82550; 82553; 84484; 85025; 93005; 93010; 99283

== ENCOUNTER 2017-11-05 20:20 | Emergency (ER) | payer OTHER ==
[2017-11-05 20:25] VITALS: BP 135/70; TEMP 98.1; BMI 33.5
--- NOTE | 2017-11-05 20:59 | ED.PDOC ---
General ED Provider: Dr. CARL ANDERSON Chief Complaint: Non-specific Complaint Stated Complaint: Patient is an 82 year old male who has a history of COPD on home oxygen at night. Was seen today at the pulmonary clinic due to increased cough and was thought to have mild copd excacerbation needing doxycyclinc, oral steroids and was told to increase his Advir to twice a day. he used it this morning without any problems but immediatly after use tonight he started having a burning sensation on the chest. Upon arrival his pain had subsided. He then hand an other brief episode of the same when he walked to the bathroom. Time Seen by Physician: 20:30 Mode of Arrival: Ambulance Information Source: Patient, EMT Exam Limitations: No limitations Primary Care Provider: SANTHOSH LOPEZ Nursing and Triage Documentation Reviewed and Agree: Yes Reviewed sepsis parameters & appropriate labs ordered?: No System Inflammatory Response Syndrome: Pulse >90 BPM Sepsis Protocol: For patient's 13 years and over: Temp is 96.8 and below OR 101 and greater Pulse >90 BPM Resp >20/minute Acutely Altered Mental Status Are patient's symptoms suggestive of a new infection, such as: -Pneumonia -Skin, Soft Tissue -Endocarditis -UTI -Bone, Joint Infection -Implantable Device -Acute Abdominal Infection -Wound Infection -Meningitis -Blood Stream Catheter Infection -Unknown System Inflammatory Response Syndrome: Not Applicable Review of Systems - Review Of Systems Constitutional: Reports: No symptoms Eyes: Reports: No symptoms Ears, Nose, Mouth, Throat: Reports: No symptoms Respiratory: Reports: Cough, Short of air Cardiac: Reports: Chest pain GI: Reports: No symptoms : Reports: No symptoms Musculoskeletal: Reports: No symptoms Skin: Reports: No symptoms Neurological: Reports: No symptoms Endocrine: Reports: No symptoms Hematologic/Lymphatic: Reports: No symptoms All Other Systems: Reviewed and Negative Past Medical History - Past Medical History Previously Healthy: Yes Endocrine: Reports: DM 2 Cardiovascular: Reports: Hypertension, DVT Respiratory: Reports: COPD, Unknown Hematological: Reports: None Gastrointestinal: Reports: None Genitourinary: Reports: Kidney stones Neuro/Psych: Reports: None Musculoskeletal: Reports: Arthritis Cancer: Reports: Unknown - Surgical History General Surgical History: Reports: Other (brain surgery, Right) - Family History Family History: Reports: Unknown - Social History Smoking Status: Never smoker Hx Substance Use: No Alcohol Screening: None - Immunizations Tetanus Shot up to Date: Yes Physical Exam - Physical Exam Appearance: Well-appearing, No pain distress, Well-nourished Eyes: GERMAN, EOMI, Conjunctiva clear ENT: Ears normal, Nose normal, Oropharynx normal Neck: Supple Respiratory: Airway patent, Breath sounds clear, Breath sounds equal, Respirations nonlabored Cardiovascular: RRR, Pulses normal, No rub, No murmur GI/: Soft, Nontender, No masses, Bowel sounds normal, No Organomegaly Musculoskeletal: Normal strength, ROM intact, No edema, No calf tenderness Skin: Warm, Dry, Normal color Neurological: Sensation intact, Motor intact, Reflexes intact, Cranial nerves intact, Alert, Oriented Psychiatric: Anxious Interpretation - Radiology Interpretation Radiology Interpretation By: Radiologist Radiology Results: Negative Exam Interpreted: CXR - EKG Interpretation Time of EKG #1: 20:47 Rate: Normal Rhythm: Sinus Ectopy: None ST Segment: Other (non specific St Abnormalities) Critical Care Note - Critical Care Note Total Time (mins): 30 Course - Course Hematology/Chemistry: 11/05/17 20:49 11/05/17 20:49 Orders, Labs, Meds: Lab Review 11/05/17 11/05/17 20:49 20:49 WBC 7.11 RBC 4.11 L Hgb 12.4 L Hct 35.4 L MCV 86.1 MCH 30.2 MCHC 35.0 RDW Coeff of Shahnaz 13.5 Plt Count 221 Immature Gran % (Auto) 1.3 Neut % (Auto) 78.4 Lymph % (Auto) 14.1 [place] % (Auto) 5.2 Eos % (Auto) 0.7 Baso % (Auto) 0.3 Immature Gran # (Auto) 0.1 Neut # (Auto) 5.6 Lymph # (Auto) 1.0 [place] # (Auto) 0.4 Eos # (Auto) 0.1 Baso # (Auto) 0.0 Sodium 137 Potassium 4.2 Chloride 105 Carbon Dioxide 18 L Anion Gap 18.2 BUN 18 Creatinine 1.20 H Estimated GFR (MDRD) 58.00 BUN/Creatinine Ratio 15.00 Glucose 333 H Calcium 9.3 Total Bilirubin 0.3 AST 12 L ALT 16 Alkaline Phosphatase 55 L Total Creatine Kinase 167 CK-MB (CK-2) 2.5 CK-MB (CK-2) % 1.90505 Troponin I 0.0280 Total Protein 7.4 Albumin 3.5 Globulin 3.9 Albumin/Globulin Ratio 0.90 Orders Category Date Time Status EKG-(ED ONLY) Stat CARDIO 11/05/17 20:28 Completed CBC W/ AUTO DIFF Stat LAB 11/05/17 20:49 Completed COMPREHENSIVE METABOLIC PANEL Stat LAB 11/05/17 20:49 Completed CREATINE KINASE Stat LAB 11/05/17 20:49 Completed TROPONIN I Stat LAB 11/05/17 20:49 Completed CHEST, 1V AP ONLY Stat RADS 11/05/17 20:28 Taken Vital Signs: Temp Pulse Resp BP Pulse Ox 11/05/17 20:22 98.1 F 102 H 22 135/70 98 LINDY Risk Score Age >/= 65: Yes LINDY Total Score: 1 LINDY Risk Score: Risk Score Odds of by 30D 0 0.1 (0.1-0.2) 1 0.3 (0.2-0.3) 2 0.4 (0.3-0.5) 3 0.7 (0.6-0.9) 4 1.2 (1.0-1.5) 5 2.2 (1.9-2.6) 6 3.0 (2.5-3.6) 7 4.8 (3.8-6.1) Departure - Departure Time of Disposition: 23:38 Disposition: TSF SHORT-TRM HOSP Discharge Problem: Unstable angina Condition: Stable Pt referred to PMD for follow-up: Yes IPMP verified?: No Allergies/Adverse Reactions: Allergies ciprofloxacin [From Cipro] Adverse Reaction (Verified 04/24/17 16:08) codeine Adverse Reaction (Verified 04/24/17 16:08) sulfamethoxazole [From Bactrim] Adverse Reaction (Verified 04/24/17 16:08) trimethoprim [From Bactrim] Adverse Reaction (Verified 04/24/17 16:08) warfarin [From Coumadin] Adverse Reaction (Verified 04/24/17 16:08) Home Medications: Ambulatory Orders Allopurinol 300 mg PO DAILY 03/03/14 Amlodipine Besylate [Norvasc] 10 mg PO DAILY 03/03/14 Aspirin [Aspirin EC] 81 mg PO DAILY 03/03/14 Cholecalciferol (Vitamin D3) [D3-2000] 2,000 units PO DAILY 03/03/14 Ipratropium/Albuterol Sulfate [Combivent Respimat Inhal [place]] 3 puff IH DAILY PRN 03/03/14 Losartan Potassium 100 mg PO DAILY 03/03/14 Montelukast Sodium [Singulair] 10 mg PO DAILY 03/03/14 [place]-3 Fatty Acids [Fish Oil] 1,000 mg PO DAILY 03/03/14 Propafenone HCl [Rythmol] 150 mg PO BID 03/03/14 Ubidecarenone [Co Q-10] 200 mg PO DAILY 03/03/14 Albuterol Sulfate 0.083% Neb [Albuterol 0.083% Neb] 1 vial NEB RTQ8H 04/24/17 Fluticasone/Salmeterol [Advair 250-50 Diskus] 1 each IH DAILY 04/24/17 Doxycycline Hyclate 100 mg PO BID 11/05/17 Insulin Glargine,Hum.rec.anlog [Lantus] 40 unit SQ BEDTIME 11/05/17 Insulin Lispro [Humalog] 25 unit SQ DIRECTED 11/05/17 Prednisone 20 mg PO DIRECTED 11/05/17
--- NOTE | 2017-11-06 08:08 | DI ---
EXAM: Single frontal view of the chest HISTORY: Chest pain. COMPARISON: CT chest 03/03/2049 Chest x-ray 03/03/2014 FINDINGS: Cardiomediastinal silhouette is unremarkable. There is mild atherosclerotic disease of the aorta. There is no consolidation, nodule or mass. There is no pneumothorax or pleural effusion. O sseous structures demonstrate mild degenerative disease of the spine and shoulders. IMPRESSION: No acute cardiopulmonary process.
== END 2017-11-06 00:40 | disposition short-term general hospital (02) ==
LOC: ED 20:20
DX: I20.0 Unstable angina (principal); I10 Essential (primary) hypertension; E11.9 Type 2 diabetes mellitus without complications; J44.9 Chronic obstructive pulmonary disease, unspecified; R06.02 Shortness of breath; Z86.718 Personal history of other venous thrombosis and embolism; Z99.81 Dependence on supplemental oxygen; Z79.4 Long term (current) use of insulin; Z79.899 Other long term (current) drug therapy
CPT/HCPCS: 36415; 80053; 82550; 82553; 84484; 85025; 93005; 93010; 99285

== ENCOUNTER 2017-11-06 00:45 | Outpatient (CLI) | payer OTHER ==
[2017-11-05 20:25] VITALS: BMI 33.5
== END 2017-11-06 00:46 | disposition short-term general hospital (02) ==
LOC: AMBL 00:45
PROVIDERS: ATTEND Internal Medicine Geriatric Medicine
DX: R07.9 Chest pain, unspecified (principal)

== ENCOUNTER 2018-01-09 13:47 | Outpatient (RCR) ==
[2018-01-09 15:10] VITALS: TEMP 98.7; BMI 31.3
[2018-01-21 10:37] VITALS: BP 130/56
== END 2018-01-25 23:59 ==
LOC: CAR.REHAB 13:47
PROVIDERS: ATTEND Thoracic Surgery (Cardiothoracic Vascular Surgery)
DX: I25.110 Atherosclerotic heart disease of native coronary artery with unstable angina pectoris (principal)
CPT/HCPCS: 93798

== ENCOUNTER 2018-01-27 07:36 | Outpatient (RCR) ==
[2018-02-20 10:06] VITALS: BP 130/56
== END 2018-02-25 23:59 ==
LOC: CAR.REHAB 07:36
PROVIDERS: ATTEND Thoracic Surgery (Cardiothoracic Vascular Surgery)
DX: I25.110 Atherosclerotic heart disease of native coronary artery with unstable angina pectoris (principal)
CPT/HCPCS: 93798

== ENCOUNTER 2018-02-26 07:10 | Outpatient (RCR) ==
[2018-03-27 09:28] VITALS: BP 112/54
== END 2018-03-28 23:59 ==
LOC: CAR.REHAB 07:10
PROVIDERS: ATTEND Thoracic Surgery (Cardiothoracic Vascular Surgery)
DX: I25.110 Atherosclerotic heart disease of native coronary artery with unstable angina pectoris (principal)
CPT/HCPCS: 93798

== ENCOUNTER 2018-04-01 07:01 | Outpatient (RCR) | payer OTHER ==
[2018-04-22 09:30] VITALS: BP 128/54
== END 2018-04-27 23:59 ==
LOC: CAR.REHAB 07:01
PROVIDERS: ATTEND Thoracic Surgery (Cardiothoracic Vascular Surgery)
DX: I25.110 Atherosclerotic heart disease of native coronary artery with unstable angina pectoris (principal)
CPT/HCPCS: 93798

== ENCOUNTER 2018-04-28 08:17 | Outpatient (RCR) ==
[2018-05-28 08:57] VITALS: BP 132/54
== END 2018-05-28 23:59 ==
LOC: CAR.REHAB 08:17
PROVIDERS: ATTEND Thoracic Surgery (Cardiothoracic Vascular Surgery)
DX: I25.110 Atherosclerotic heart disease of native coronary artery with unstable angina pectoris (principal)
CPT/HCPCS: 93798

== ENCOUNTER 2018-05-29 06:07 | Outpatient (RCR) | payer OTHER ==
[2018-06-02 09:50] VITALS: BP 116/54
== END 2018-06-02 10:37 | disposition home or self-care (01) ==
LOC: CAR.REHAB 06:07
PROVIDERS: ATTEND Thoracic Surgery (Cardiothoracic Vascular Surgery)
DX: I25.110 Atherosclerotic heart disease of native coronary artery with unstable angina pectoris (principal)
CPT/HCPCS: 93798